=== PATIENT | male | born 1985 | race Caucasian/White ===

== ENCOUNTER 2022-02-04 12:36 | Emergency (ER) | payer OTHER, SELFPAY ==
--- NOTE | 2022-02-04 12:37 | ED.URI ---
HPI - URI/Sore Throat General Chief Complaint: Upper Respiratory Infection Stated Complaint: Cough,Congestion Time Seen by Provider: 02/04/22 12:37 Source: patient Mode of arrival: ambulatory Limitations: no limitations History of Present Illness HPI Narrative: Mr. Waller is a 36-year-old male patient presenting to the clinic today with complaints of cough and congestion x2 weeks. He reports he is bringing up some phlegm at times that is yellow in consistency. Reports that he has a lot of nasal congestion and the cough is worse at night when he is trying to lay down flat. Denies any fever or chills. Took a COVID test first couple days of his symptoms and it was negative. He reports he had COVID back in August. States that he did have a light headache at the beginning of this however that has improved. States that he is coughing so hard that he feels as though he is near passing out. He denies any known exposure to COVID, flu, or strep. MD elicited complaint: cough and nasal congestion Related Data Home Medications Medication Instructions Recorded Confirmed bupropion HCl 300 mg 24 hr tablet, 1 tablet PO DAILY 02/04/22 02/04/22 extended release (Wellbutrin XL) escitalopram oxalate 10 mg tablet 1 tablet PO DAILY 02/04/22 02/04/22 omeprazole 20 mg capsule,delayed 1 cap PO DAILY 02/04/22 02/04/22 release sildenafil 50 mg tablet 1 tablet PO PRN PRN Erectile 02/04/22 02/04/22 Dysfunction testosterone 10 mg/0.5 1 ea topical DAILY 02/04/22 02/04/22 gram/actuation transdermal gel pump Allergies Allergy/AdvReac Type Severity Reaction Status Date / Time Penicillins AdvReac Mild Hives Verified 02/04/22 12:56 sulfamethoxazole AdvReac Mild Hives Verified 02/04/22 12:56 [From ] trimethoprim [From ] AdvReac Mild Hives Verified 02/04/22 12:56 Review of Systems Review of Systems: Pertinent positives per HPI. Patient denies any fever, chills, rash, headache, visual changes, dizziness, shortness of breath, chest pain, palpitations, nausea, vomiting, diarrhea, constipation, abdominal pain, or any urinary issues. [facility] Comments At the time of my signature, I reviewed and agree with the nursing past medical, surgical, social, and family history. There is no relevant family history pertinent to the patient complaint. Exam Narrative: General: Well-developed, well nourished, in no apparent distress Head: Normocephalic, atraumatic Eyes: Pupils equally round and reactive to light bilaterally, EOM intact, sclera and conjunctive clear, no discharge, lids normal Ears: TMs intact and clear, ear canals clear, no drainage, grossly hearing normal. Nose: Nares patent, clear discharge, mild inflammation, no sinus tenderness. Mouth: Oral pharynx without lesions or masses, good dentition, MMM. Postnasal drip Neck: Supple, trachea midline, no enlargement of anterior or posterior cervical nodes, no thyroid masses or goiter palpable. Cardio: Regular rate and rhythm, s1 and s2 normal, no murmur appreciated. Resp: Clear to auscultation bilaterally, no rhonchi, rales, wheezing or rubs Course Course Emergency Course: Portions of this record may have been created with voice recognition software. Level of Care: Express Care Visit Vital Signs Vital signs: Vital signs reviewed MDM - URI/Sore Throat MDM Narrative Medical decision making narrative: At the time of assessment patient is resting comfortably on the exam table. I suspect the patient has bronchitis with bronchospasms. I will give him a course of prednisone, albuterol inhaler, and Tessalon Perles for the cough. Supportive measures were discussed with the patient he voiced understanding of discharge instructions and agrees to the treatment plan. Differential Diagnosis Differential diagnosis: Likely upper respiratory infection, sinusitis, viral infection, bronchitis, influenza, pharyngitis and other (COVID) Discharge Plan Discharge Clinical Impression: A
[2022-02-04 12:45] VITALS: BP 135/84; PULSE 81; RESP 18; TEMP 36.9; O2SAT 99
[2022-02-04 12:56] VITALS: BP 135/84; PULSE 81; RESP 18; TEMP 36.9; O2SAT 99
== END 2022-02-04 12:58 | disposition home or self-care (01) ==
LOC: EXPTROY 12:41
PROVIDERS: Emergency Provider Nurse Practitioner Family
DX: J20.9 Acute bronchitis, unspecified (principal); K21.9 Gastro-esophageal reflux disease without esophagitis; Z86.16 Personal history of COVID-19; F41.9 Anxiety disorder, unspecified; F32.A Depression, unspecified
CPT/HCPCS: 99203; G0463

== ENCOUNTER 2022-08-05 10:06 | Emergency (ER) | payer OTHER, SELFPAY ==
[2022-08-05 10:27] VITALS: BP 123/85; PULSE 98; RESP 18; TEMP 36.2; O2SAT 97
--- NOTE | 2022-08-05 10:33 | ED.URI ---
HPI - URI/Sore Throat General Chief Complaint: Upper Respiratory Infection Stated Complaint: sorethroat,congestion Time Seen by Provider: 08/05/22 10:33 Source: patient Mode of arrival: ambulatory Limitations: no limitations History of Present Illness HPI Narrative: 36-year-old male presents complaint nasal congestion, fatigue, cough, body aches, chills for 3 days. Is unsure if he has had a fever. Reports hot and sweaty last night while in bed. Had influenza exposure from his son. Denies chest pain and shortness of breath. No nausea vomiting diarrhea. All systems reviewed and negative except as noted above. Related Data Home Medications Medication Instructions Recorded Confirmed bupropion HCl 300 mg 24 hr tablet, 1 tablet PO DAILY 02/04/22 08/05/22 extended release (Wellbutrin XL) escitalopram oxalate 10 mg tablet 1 tablet PO DAILY 02/04/22 08/05/22 omeprazole 20 mg capsule,delayed 1 cap PO DAILY 02/04/22 08/05/22 release testosterone enanthate 75 mg/0.5 75 mg subcut WEEKLY 08/05/22 08/05/22 mL subcutaneous auto-injector (Xyosted) Allergies Allergy/AdvReac Type Severity Reaction Status Date / Time Penicillins AdvReac Mild Hives Verified 08/05/22 10:25 sulfamethoxazole AdvReac Mild Hives Verified 08/05/22 10:25 [From ] trimethoprim [From ] AdvReac Mild Hives Verified 08/05/22 10:25 Review of Systems Review of Systems: CONSTITUTIONAL: Denies fever . Reports chills, or sweats. reports fatigue. EYES: Denies visual changes, redness, or discharge. ENT: Reports rhinorrhea, congestion, sore throat. Deniesotalgia. CARDIOVASCULAR: Denies chest pain, palpitations, or edema. RESPIRATORY: reports cough. Denies dyspnea. GASTROINTESTINAL: Denies abdominal pain, nausea, vomiting, or diarrhea. GENITOURINARY: Denies dysuria or hematuria. SKIN: Denies rash or itching. MUSCULOSKELETAL: Denies back pain, joint pain, or myalgia. NEUROLOGIC: Denies headache, numbness, or weakness. PSYCHIATRIC: Denies anxiety or depression. All other systems reviewed are negative, except as documented in HPI. [facility] Comments At time of signature, agree with nursing past medical, surgical, social and family history. There is no relevant family history pertinent to the presenting complaint. Exam Narrative: GENERAL: This is a well-nourished, well-developed patient, in no apparent distress. HEAD: normocephalic, atraumatic. EYES: PERRL. Sclera clear/white. Vision is grossly intact. EARS: External ears normal, auditory canals clear and without drainage, TMs normal without perforation. Hearing grossly intact. NOSE: External nose normal with no obvious nasal discharge, nares without redness, no rhinorrhea. THROAT: Mucous membranes moist, posterior pharynx clear. NECK: Neck supple, non-tender without lymphadenopathy, masses or thyromegaly. CARDIOVASCULAR: Regular rate and rhythm without murmurs, gallops, or rubs. RESPIRATORY: Clear to auscultation. Breath sounds equal bilaterally. No wheezes, rales, or rhonchi. SKIN: warm, Dry, intact with no suspicious lesions or rash, good texture and turgor. NEURO: awake, alert, and oriented to person, place and time. There were no obvious focal neurologic abnormalities. EXTREMITIES: No joint tenderness, effusion, or edema noted. Course Course Level of Care: Express Care Visit Vital Signs Vital signs: Vital Signs Temperature 36.2 C L 08/05/22 10:27 Pulse Rate 98 08/05/22 10:27 Respiratory Rate 18 08/05/22 10:27 Blood Pressure 123/85 08/05/22 10:27 Pulse Oximetry 97 08/05/22 10:27 Oxygen Delivery Room Air 08/05/22 10:27 Temperature 36.2 C L 08/05/22 10:27 Pulse Rate 98 08/05/22 10:27 Respiratory Rate 18 08/05/22 10:27 Blood Pressure 123/85 08/05/22 10:27 Pulse Oximetry 97 08/05/22 10:27 Oxygen Delivery Room Air 08/05/22 10:27 reviewed MDM - URI/Sore Throat MDM Narrative Medical decision making narrative: unable to test p
== END 2022-08-05 10:44 | disposition home or self-care (01) ==
PROVIDERS: Emergency Provider Nurse Practitioner Family
DX: J06.9 Acute upper respiratory infection, unspecified (principal)
CPT/HCPCS: 99213; G0463

== ENCOUNTER 2022-10-24 07:57 | Outpatient (CLI) | payer OTHER, SELFPAY | END 2022-10-24 07:58 | disposition home or self-care (01) | PROVIDERS: Visit Provider Surgery | DX: Z01.812 Encounter for preprocedural laboratory examination (principal); K40.91 Unilateral inguinal hernia, without obstruction or gangrene, recurrent | CPT/HCPCS: 36415; 86850; 86900; 86901 ==

== ENCOUNTER 2022-11-01 00:26 | Day surgery (SDC) | payer OTHER, SELFPAY ==
--- NOTE | 2022-10-18 13:10 | PC.NURSE ---
Report to the Outpatient Waiting Room, entrance under the green pavilion located off [facility], at time 0830 on date 11/01/22. Planned Procedure Time: 1030. Time changes happen often and if your time is changed the preop area will call you the afternoon before. - You and your visitor will be asked to self-screen and do not enter if you have any COVID symptoms. - Only one visitor is requested with a max of two and NO children visitors are allowed at this time. - The patient visitor may be requested to leave or wait in car when not with patient due to distancing restrictions. - A mask is optional within the hospital at this time. Patients may have clear liquids (water, carbonated beverages, clear teas, apple juice) until 3 hours prior to surgery (0730) with a maximum of 20 ounces. - No food from midnight until time of surgery Take the following medications with a SIP of water the morning of surgery: WELLBUTRIN, ESCITALOPRAM DO NOT STOP ANY OF YOUR OTHER PRESCRIPTION MEDICATIONS PRIOR TO SURGERY EXCEPT THE FOLLOWING Medications to discontinue per physician: N/A Date to take last dose: N/A Please no make-up, nail bulgarian, hairspray, perfume, deodorant, or body powder the day of surgery. No jewelry (including any body piercings) or valuables the day of surgery, leave them at home. Please take a shower or bath the night before, or the morning of, surgery with an antibacterial soap (HIBICLENS). Wear comfortable, loose fitting clothing. - Jewelry must be removed prior to entering the operating room. Rings and piercings that are not removed may be cut off. - The hospital will not accept responsibility for valuables. - Please leave all valuables, including medications, at home the day of surgery. If you are going home after surgery, a licensed lease purchase driver must drive you home. - NO public transportation without another adult if you receive anesthesia. - We recommend that an adult stay with you for 24 hours following discharge. - We also recommend that you do not drive, make important decision, drink alcoholic beverages, or take any drugs that were not prescribed by your health care provider for at least 24 hours after your discharge time. Follow any additional instructions given to you from your surgeon. If you or anyone in your household have experienced Covid symptoms in the past week, please notify your surgeon or the nurse liaison at the phone number below for possible testing. Telephone instructions given to ANGELITO CROCKER and asked if any additional questions and then verbalized understanding. Patient advised to call surgeon office or pre surgery nurse liaison [phone] if any additional questions.
[2022-11-01] VITALS (11 sets, daily range): BP systolic 116–139; BP diastolic 73–90; PULSE 67–83; RESP 15–17; TEMP 36.3–36.6; O2SAT 94–99
[2022-11-01] MEDS: ACETAMINOPHEN 500 MG TABLET 1000 MG PO (08:44)
[2022-11-01] MEDS: KETOROLAC 15 MG/ML VIAL (*BKC) IV PUSH (09:10)
--- NOTE | 2022-11-01 10:09 | P.PNAN_ITS ---
Anes - Initial Pre Proc Eval Procedure: Operation Date: 11/01/22 10:30 Proposed Procedures p Robotic Laparoscopic Repair Recurrent Right Inguinal Hernia - Michael Aguirre MD Date/Time: 11/01/22 10:09 Surgeon: Michael Aguirre MD Pre Op Diagnosis: Recurrent Right Ing Hernia Patient Data Age: 37 Gender: M Height: 1.85 m Weight: 103.7 kg Last Vital Signs Temp 36.3 C L 11/01/22 09:04 Pulse 75 11/01/22 09:04 Resp 16 11/01/22 09:04 BP 136/84 11/01/22 09:04 Pulse Ox 94 11/01/22 09:04 O2 Del Method Room Air 11/01/22 09:04 Allergies Allergy/AdvReac Type Severity Reaction Status Date / Time Penicillins AdvReac Mild Hives Verified 11/01/22 08:40 sulfamethoxazole AdvReac Mild Hives Verified 11/01/22 08:40 [From ] trimethoprim [From ] AdvReac Mild Hives Verified 11/01/22 08:40 Home Medications Medication Instructions Recorded Confirmed Type bupropion HCl 300 mg 24 hr tablet, 1 tablet PO DAILY 02/04/22 10/18/22 History extended release (Wellbutrin XL) escitalopram oxalate 10 mg tablet 1 tablet PO DAILY 02/04/22 10/18/22 History omeprazole 20 mg capsule,delayed 1 cap PO DAILY 02/04/22 10/18/22 History release testosterone enanthate 75 mg/0.5 75 mg subcut WEEKLY 08/05/22 10/18/22 History mL subcutaneous auto-injector (Xyosted) Patient hx anesthesia problems: none and other (motion sickness) Family hx anesthesia problems: none Results Review: All pre-operative results and documents have been reviewed as part of the pre- operative evaluation. [facility] Past Medical History Medical History Depression GERD (gastroesophageal reflux disease) Surgical History Surgical History H/O toe surgery S/P right inguinal hernia repair as a baby Social History Social History Smoking status: Never smoker Alcohol intake: current Alcohol use details: VERY RARE Substance use: never Substance use type: does not use Living arrangements: with family Spiritual care concerns: No Anes - Eval Final PreProcedure Day of Procedure 11/01/22 10:09 Patient weight: obese Heart: regular rate and rhythm Lungs: clear to auscultation Airway: Mallampati scale class II Neurological: alert and oriented Last oral intake: >/= 8 hours ASA classification: III Emergent: no Anesthetic plan: proceed Anesthesia type and monitoring: general ETT and standard monitoring Results Review: All pre-operative results and documents have been reviewed as part of the pre- operative evaluation. Informed Consent: The patient's anesthetic plan and its attendant risks and benefits were discussed with the patient/family/POA. Questions were solicited and answers provided to the satisfaction of the patient/family/POA.
[2022-11-01] MEDS: LACTATED RINGERS 1,000 ML 30 ML IV CONT ×2 (10:14→12:26)
[2022-11-01] MEDS: SCOPOLAMINE 1.5 MG PATCH TRANSDERM (10:14)
--- NOTE | 2022-11-01 10:22 | PM.SD2 ---
Same Day Admit/Disch: HPI History of Present Illness Narrative: Yordy Waller is a 37 year old male with a painful bulge in the right groin. He had a right inguinal hernia repair when he was 3 months old. He was seen in the office and found to have a recurrent right inguinal hernia. He is taken to surgery now for repair. [facility] Past Medical History Medical History Depression GERD (gastroesophageal reflux disease) Surgical History Surgical History H/O toe surgery S/P right inguinal hernia repair as a baby Social History Social History Smoking status: Never smoker Alcohol intake: current Alcohol use details: VERY RARE Substance use: never Substance use type: does not use Living arrangements: with family Spiritual care concerns: No Same Day Admit/Disch: Med Pre-admit Medications Home Medications Medication Instructions Recorded Confirmed Type bupropion HCl 300 mg 24 hr tablet, 1 tablet PO DAILY 02/04/22 10/18/22 History extended release (Wellbutrin XL) escitalopram oxalate 10 mg tablet 1 tablet PO DAILY 02/04/22 10/18/22 History omeprazole 20 mg capsule,delayed 1 cap PO DAILY 02/04/22 10/18/22 History release testosterone enanthate 75 mg/0.5 75 mg subcut WEEKLY 08/05/22 10/18/22 History mL subcutaneous auto-injector (Xyosted) ketorolac 10 mg tablet 10 mg PO Q6H 4 days #16 tabs 11/01/22 Rx oxycodone-acetaminophen 5 mg-325 1 - 2 tablet PO Q6H PRN pain #15 11/01/22 Rx mg tablet (Percocet) tabs Exam Const: General: comfortable, no acute distress, alert and awake HENMT: Head: normocephalic and atraumatic Mouth: Yes Normal oral and palatal mucosa present Eyes: Conjunctivae: conjunctivae normal Pupils: Equal, round and reactive pupils present EOM: EOMs intact bilaterally Neck: Neck: normal visual inspection, no lymphadenopathy and nontender Resp: Effort & Inspection: normal respiratory effort Auscultation: clear to auscultation bilaterally Cardio: Rate: regular rate Rhythm: regular rhythm Heart sounds: no gallops, no murmurs and no rubs GI: Inspection: non-distended GI Palp: Yes Soft to palpation, No Tenderness to palpation present (GI), No Hepatomegaly present and No Splenomegaly present : Male General Exam: Yes hernia (tender, reducible right inguinal hernia) and Yes tenderness Penis: Yes normal penis Scrotum: scrotum normal Testes: Testes normal Skin: Lesions: no lesions Rashes: no rashes Neuro: General: no focal motor deficits and CN's II-XI intact bilaterally Cranial nerves: Yes Equal, round and reactive pupils present, Yes Bilaterally intact EOM present, Yes facial symmetry and Yes Midline tongue present Speech: normal speech Motor exam (neuro): 5/5 motor strength present throughout and Motor abnormalities not present Extrem: General: no clubbing, cyanosis or edema and edema Psych: Affect: normal affect Thought process: Normal thought process present Insight: Good insight present (Psych) DS: Summary Time Spent with Patient Time attestation: Total time spent providing and/or coordinating discharge services: DS: Admitting Diagnosis Discharge Date 11/01/22 Admitting Diagnosis reducible right inguinal hernia--plan to repair robotically as an outpatient. Procedure, risks, benefits discussed. He agrees to go ahead. DS: Discharge Diagnosis Discharge Diagnosis (1) Recurrent right inguinal hernia: Code(s): K40.91 - Unilateral inguinal hernia, without obstruction or gangrene, recurrent Status: Chronic Discharge Plan Discharge Patient Disposition: Home, Self-Care Discharge Instructions: 1. May shower the day after surgery over incisions. 2. Call office for: -Wound increasingly painful or bleeding -Vomiting -Fever of greater than 101 degrees 3. Expect s
--- NOTE | 2022-11-01 10:27 | WPDHPUPDATE1 ---
History and Physical Update Update Date/Time: 11/01/22 10:27 History and Physical has been reviewed, including an updated exam of the patient. There are NO changes in the patient's condition. Risks, benefits, and alternatives have been discussed and questions answered. Patient agrees to proceed with procedure.
[2022-11-01] MEDS: ceFAZolin 2 GM/D5W 50 ML 2 GM/50 ML BAG IVPB (10:37)
[2022-11-01] MEDS: BUPIVACAINE/EPINEPHRINE 0.25% 50 ML VIAL 30 ML INFILTRATE (11:05)
--- NOTE | 2022-11-01 12:49 | W.PM.PROC2 ---
Procedure Note - Detailed Date of Procedure 11/01/22 Pre-op Diagnosis Recurrent Right Ing Hernia Post-op Diagnosis Same Procedure Performed Robotic laparoscopic repair recurrent right inguinal hernia Surgeon Michael Aguirre MD Chemistry Research Assistant Derrek MAGANA Anesthesia General and Local (0.25% Marcaine with epinephrine) Indications Patient is a 37-year-old man who had a right inguinal hernia repair when he was 3-month-old. He has developed a bulge and discomfort in the right groin. He was seen in the office and found to have a recurrent right inguinal hernia. He is taken to surgery now for repair repair with the robotic laparoscopic technique. Findings He had an indirect right inguinal hernia Description of Procedure Patient was taken to surgery and induced into general anesthesia. The abdomen is prepped and draped. Local anesthetic was infiltrated above the umbilicus in the midline. Incision was made. An applied Medical optical trocar was then placed at this location under direct visualization. Once we were in the abdominal cavity, insufflation was carried out. Two 8 mm robotic trocars were then placed to the right and to the left of the initial supraumbilical trocar. These were each placed under direct visualization. The 5 mm optical trocar was then switched out for an 8 mm robotic trocar. We then brought the robot into the field. The camera was docked and then targeted. The dissecting scissors were placed in the right-sided port. Force bipolar was placed in the left-sided port. The surgeon then went to the console. There were some small bowel adhesions to the peritoneum in the area of the hernia. These were taken down without difficulty. I then scored the peritoneum at the median umbilical ligament above the inguinal canal and extended this opening laterally beyond the direct space. I then created a peritoneal flap by dissecting the peritoneum posteriorly. Medially this dissection was carried down to the pubis and Mt's ligament. Laterally, the dissection was carried down to the pectinate line. No holes in the peritoneum work made. I then went back to the area of the cord structures. The indirect hernia sac was dissected out of the internal ring. The hernia was dissected free from the cord structures. We then continued the dissection of the peritoneal flap and hernia sac off the cord structures so there was plenty of room for the lower margin of the mesh. Cautery was used for hemostasis throughout the procedure. A 17 x 12 cm 3D max mesh was then chosen. It was introduced into the field. It was then positioned appropriately over the direct and indirect space. A 3-0 Vicryl suture was used to suture the mesh to the periosteum of the pubis. Two additional 3-0 Vicryl sutures were placed anteriorly. One was medial to the inferior epigastric vessels. The other was lateral to these vessels. With the mesh secured, I then raised the peritoneal flap and ensure that the mesh would not come up with flap closure at its lower margin. A 2 0 V lock was then used and the peritoneal opening was closed with running suture. The suture needles were then removed. The remaining robotic instruments were removed. The robot was undocked and the trocars were removed. Skin wounds were closed with subcuticular 4-0 Monocryl skin suture. Wounds were dressed with Exofin surgical adhesive. The patient was awakened and taken to recovery in good condition. Sponge and needle counts were correct x2. Implants 17 x 12 cm 3D max mesh Estimated Blood Loss -5.0 Drains No Packing No Pathology None sent Complications No immediate complications Condition Stable Disposition PACU [facility] Billing Surgery - Charge Forward: Surgery Billing (Robotic laparoscopic repair recurrent right inguinal hernia with mesh)
[2022-11-01] MEDS: oxyCODONE HCL (*CRX) 5 MG TAB IR PO (14:52)
== END 2022-11-01 15:04 | disposition home or self-care (01) ==
PROVIDERS: Visit Provider Surgery
PROC: 8E0Y4CZ Robotic Assisted Procedure of Lower Extremity, Percutaneous Endoscopic Approach (ICD-10-PCS; CPT 49650; principal; 2022-11-01 10:30)
DX: K40.91 Unilateral inguinal hernia, without obstruction or gangrene, recurrent (principal); K21.9 Gastro-esophageal reflux disease without esophagitis; F32.A Depression, unspecified; E66.9 Obesity, unspecified; Z68.30 Body mass index [BMI] 30.0-30.9, adult
CPT/HCPCS: 49651; S2900; A9270; C1781; J0690; J1100; J1170; J1885; J2250; J2405; J2704; J2710; J3010; J7120

== ENCOUNTER 2023-04-21 08:28 | Emergency (ER) | payer OTHER, SELFPAY ==
[2023-04-21 08:43] VITALS: BP 135/88; PULSE 67; RESP 20; TEMP 36.2; O2SAT 98
--- NOTE | 2023-04-21 08:56 | ED.URI ---
HPI - URI/Sore Throat General Chief Complaint: Upper Respiratory Infection Stated Complaint: cough,sob Time Seen by Provider: 04/21/23 08:56 Source: patient, RN notes reviewed and old records reviewed Mode of arrival: ambulatory Limitations: no limitations History of Present Illness HPI Narrative: 37-year-old male presents to the [facility] with complaints of cough and shortness of breath for 5 days. Reports a fever of 101. Has been taking Tylenol, ibuprofen and Mucinex. Denies chest pain, abdominal pain. Has a history of bronchitis Onset (ago): day(s) (5) Related Data Home Medications Medication Instructions Recorded Confirmed bupropion HCl 300 mg 24 hr tablet, 1 tablet PO DAILY 02/04/22 04/21/23 extended release (Wellbutrin XL) escitalopram oxalate 10 mg tablet 1 tablet PO DAILY 02/04/22 04/21/23 omeprazole 20 mg capsule,delayed 1 cap PO DAILY 02/04/22 04/21/23 release testosterone enanthate 75 mg/0.5 75 mg subcut WEEKLY 08/05/22 04/21/23 mL subcutaneous auto-injector (Xyosted) dextroamphetamine-amphetamine ER 10 mg PO DAILY 04/21/23 04/21/23 10 mg 24hr capsule,extend release (Adderall XR) prazosin 1 mg capsule 1 mg PO DAILY 04/21/23 04/21/23 Allergies Allergy/AdvReac Type Severity Reaction Status Date / Time Penicillins AdvReac Mild Hives Verified 04/21/23 08:55 sulfamethoxazole AdvReac Mild Hives Verified 04/21/23 08:55 [From ] trimethoprim [From ] AdvReac Mild Hives Verified 04/21/23 08:55 Review of Systems Review of Systems: All systems reviewed & are unremarkable except as noted in HPI and below Constitutional: Constitutional: Reports no additional constitutional complaints Eyes: Eyes: Reports no additional eye complaints ENT: Reports as per HPI and Reports nasal congestion Cardiovascular: Cardiovascular: Reports no additional cardiovascular complaints, Denies chest pain and Denies dyspnea Respiratory: Respiratory: Reports as per HPI, Denies chest congestion, Reports cough and Reports dyspnea Gastrointestinal: Gastrointestinal: Reports no additional gastrointestinal complaints, Denies abdominal pain, Denies nausea and Denies vomiting Musculoskeletal: Musculoskeletal: Reports no additional musculoskeletal complaints Integumentary/Breasts: Skin/Breast: Reports system reviewed and no additional complaints, except as docu Neurologic: Reports system reviewed and no additional complaints, except as documented Psychiatric: Psychiatric: Reports no additional psychiatric complaints Allergic/Immunologic: Allergic/Immunologic: Reports no additional allergic/immunologic complaints PMFSH Past Medical History Medical History Depression GERD (gastroesophageal reflux disease) Surgical History Surgical History H/O toe surgery Hx of inguinal hernia repair Robotic laparoscopic repair recurrent right inguinal hernia on 11/01/22 S/P right inguinal hernia repair as a baby Social History Social History Smoking status: Never smoker Alcohol intake: current Alcohol use details: VERY RARE Substance use: never Substance use type: does not use Living arrangements: with family Spiritual care concerns: No Comments At the time of my signature, I reviewed and agree with the nursing past medical, surgical, social, and family history. There is no relevant family history pertinent to the patient complaint. Exam Const: General: cooperative, healthy appearing, comfortable, no acute distress, well developed, alert and well nourished Nutritional Appearance: well nourished Orientation/consciousness: patient oriented x3 Limitations: no limitations HENMT: Head: normal to inspection Ears: hearing grossly normal bilaterally, external ears normal, TM's normal bilaterally, EAC's normal and mastoids normal Face/Nose
== END 2023-04-21 09:10 | disposition home or self-care (01) ==
PROVIDERS: Emergency Provider Nurse Practitioner
DX: J40 Bronchitis, not specified as acute or chronic (principal); K21.9 Gastro-esophageal reflux disease without esophagitis; F32.A Depression, unspecified
CPT/HCPCS: 99213; G0463